=== PATIENT | female | born 1950 | race Caucasian/White ===

== ENCOUNTER → 2017-12-03 | Outpatient (CLI) | payer BC, OTHER | LOC: HYPER 12-02 09:36 | DX: S71.101A Unspecified open wound, right thigh, initial encounter (principal); E11.628 Type 2 diabetes mellitus with other skin complications; E66.9 Obesity, unspecified; L02.235 Carbuncle of perineum; I10 Essential (primary) hypertension; E03.9 Hypothyroidism, unspecified; E78.5 Hyperlipidemia, unspecified; Z79.84 Long term (current) use of oral hypoglycemic drugs; Z79.4 Long term (current) use of insulin; Z68.36 Body mass index [BMI] 36.0-36.9, adult; Y93.89 Activity, other specified; X58.XXXA Exposure to other specified factors, initial encounter; Y92.89 Other specified places as the place of occurrence of the external cause; Y99.8 Other external cause status ==

== ENCOUNTER → 2021-03-22 | Outpatient (CLI) | payer OTHER, MEDICARE | LOC: SJCVCIMAG 10:44 | PROVIDERS: ATTEND Family Medicine | DX: I73.9 Peripheral vascular disease, unspecified (principal); M79.606 Pain in leg, unspecified ==